=== PATIENT | male | born 1975 | race Caucasian/White ===

== ENCOUNTER 2020-04-14 07:55 | Outpatient (CLI) | payer OTHER, SELFPAY ==
[2020-04-14 08:23] LABS: Basophils Absolute Auto 0.1 K/mm3 (0.0-0.1); Basophils Percent Auto 0.7 % (0.2-1.2); Eosinophils Absolute Auto 0.1 K/mm3 (0-0.3); Eosinophils Percent Auto 0.7 % (0-4.4); Hematocrit 46.5 % (42.0-52.0); Hemoglobin 15.3 g/dL (14.0-18.0); Immature Granulocyte Absolute 0.02 K/mm3 (0.00-0.031); Immature Granulocyte Percent A 0.3 % (0-0.5); Lymphocytes Absolute Auto 2.25 K/mm3 (0.9-3.2); Lymphocytes Percent Auto 32.5 % (18.3-44.2); Mean Corpuscular HGB Conc 32.9 g/dl (32-36); Mean Corpuscular Hemoglobin 29.1 pg (26-34); Mean Corpuscular Volume 88.6 fl (80-100); Mean Platelet Volume 10.5 fl (7.4-10.4); Monocytes Absolute Auto 0.7 K/mm3 (0.1-0.6); Monocytes Percent Auto 10.5 % (2.6-8.5); Neutrophils Absolute Auto 3.8 K/mm3 (1.3-6.7); Neutrophils Percent Auto 55.3 % (45.5-73.1); Platelet Count Result 243 k/mm3 (150-375); Red Blood Count 5.25 M/mm3 (4.6-6.20); Red Cell Distribution Width 13.9 % (11.5-14.5); White Blood Count 6.9 K/mm3 (4.5-10.0)
[2020-04-14 08:35] LABS: Alanine Aminotransferase 96 U/L (4-50); Albumin Level 4.2 g/dL (3.5-5.1); Alkaline Phosphatase 119 U/L (38-126); Anion Gap 4 mmol/L (8-16); Aspartate Amino Transferase 51 U/L (17-59); Bilirubin,Total 0.6 mg/dL (0.2-1.3); Blood Urea Nitrogen 10 mg/dL (9-20); Calcium 10.2 mg/dL (8.4-10.2); Carbon Dioxide 27 mmol/L (22-30); Chloride 110 mmol/L (98-107); Cholesterol 157 mg/dL (0-200); Estimated Glomerular Filt Rate > 60; Glucose 105 mg/dL (75-110); HDL Direct 31 mg/dL; Potassium 4.1 mmol/L (3.4-5.0); Sodium 141 mmol/L (137-145); Triglycerides 138 mg/dL (<150); Uric Acid 8.1 mg/dL (3.5-8.5)
[2020-04-14 08:46] LABS: LDL Cholesterol Direct 95 mg/dL
[2020-04-14 10:35] LABS: Hemoglobin A1C 5.7 % (<5.7)
== END 2020-04-14 07:56 | disposition home or self-care (01) ==
PROVIDERS: PCP Family Medicine; Visit Provider Family Medicine
DX: I10 Essential (primary) hypertension (principal); R63.5 Abnormal weight gain; Z13.1 Encounter for screening for diabetes mellitus; N20.0 Calculus of kidney; E78.2 Mixed hyperlipidemia
CPT/HCPCS: 36415; 80053; 80061; 83036; 84550; 85025

== ENCOUNTER 2020-05-30 12:40 | Outpatient (CLI) | payer OTHER, SELFPAY ==
[2020-05-30 13:38] LABS: Alanine Aminotransferase 80 U/L (4-50); Aspartate Amino Transferase 48 U/L (17-59)
== END 2020-05-30 12:41 | disposition home or self-care (01) ==
PROVIDERS: PCP Family Medicine; Visit Provider Family Medicine
DX: Z79.899 Other long term (current) drug therapy (principal)
CPT/HCPCS: 36415; 84450; 84460

== ENCOUNTER 2020-08-16 13:31 | Outpatient (CLI) | payer OTHER, SELFPAY ==
[2020-08-16 14:15] LABS: Alanine Aminotransferase 81 U/L (4-50); Alkaline Phosphatase 118 U/L (38-126); Aspartate Amino Transferase 58 U/L (17-59)
== END 2020-08-16 13:32 | disposition home or self-care (01) ==
PROVIDERS: PCP Family Medicine; Visit Provider Family Medicine
DX: R79.89 Other specified abnormal findings of blood chemistry (principal); Z79.899 Other long term (current) drug therapy
CPT/HCPCS: 36415; 84075; 84450; 84460

== ENCOUNTER → 2020-08-25 13:06 | Outpatient (CLI) | payer OTHER, SELFPAY ==
--- NOTE | ~2020-08-25 | US_ITS ---
EXAMINATION: US abdomen limited EXAM DATE: 08/25/2020 13:34 INDICATION: Abnormal levels of other serum enzymes. TECHNIQUE: Multiple grayscale and Doppler images of the abdomen right upper quadrant were obtained (b y a technologist who performed the scan) and subsequently reviewed. There is no prior study for ayleen chavez. FINDINGS: The pancreatic head and body are normal in appearance. The pancreatic tail is not visualized. There is echogenic liver parenchyma with poor penetration, hepatic steatosis. There are no focal liver le sions identified. There is no evidence of intrahepatic biliary duct dilation. Portal venous flow w as seen in the hepatopedal, normal direction and has normal Doppler waveform. No right-sided hydrone phrosis. Common bile duct measures 4 mm, which is normal. The gallbladder wall is normal in thickness, with ex pected amount of distention. No sonographic evidence of pericholecystic fluid. There is no cholelit hiases. Technologist performing exam reports patient did not demonstrate sonographic Deleon's sign. Please note that this sign is less reliable in patients who have received pain medication. IMPRESSION: 1. Hepatic steatosis. Reviewed, dictated and finalized at location B. IMPRESSION: 1. Hepatic steatosis.
== END ==
PROVIDERS: PCP Family Medicine; Visit Provider Family Medicine
DX: R74.8 Abnormal levels of other serum enzymes (principal); K76.0 Fatty (change of) liver, not elsewhere classified
CPT/HCPCS: 76705

== ENCOUNTER 2020-10-06 14:23 | Outpatient (CLI) | payer OTHER, SELFPAY ==
[2020-10-06 16:11] LABS: Anion Gap 7 mmol/L (8-16); Blood Urea Nitrogen 13 mg/dL (9-20); Calcium 9.9 mg/dL (8.4-10.2); Carbon Dioxide 25 mmol/L (22-30); Chloride 106 mmol/L (98-107); Estimated Glomerular Filt Rate > 60; Glucose 131 mg/dL (65-110); Sodium 138 mmol/L (137-145)
== END 2020-10-06 14:24 | disposition home or self-care (01) ==
LOC: ANHLAB 14:26
PROVIDERS: PCP Family Medicine; Visit Provider Anesthesiology
DX: Z01.818 Encounter for other preprocedural examination (principal); Z79.899 Other long term (current) drug therapy
CPT/HCPCS: 36415; 80048

== ENCOUNTER 2020-10-11 01:39 | Day surgery (SDC) | payer OTHER, SELFPAY ==
[2020-10-05 18:11] VITALS: BMI 45.2
--- NOTE | 2020-10-10 13:49 | WPDANESEPPF ---
Anes - Initial Pre Proc Eval Procedure: Operation Date: 10/11/20 09:45 Proposed Procedures p Excision of Lipoma Subcutaneous Mass Right Posterior Neck - Jet Rascon MD s Excision Tender Pigmented Neoplasm Right Posterior Thigh - Jet Rascon MD Date/Time: 10/10/20 13:49 Surgeon: Jet Rascon MD Pre Op Diagnosis: Sub Q Mass Right Posterior Neck, Patient Data Age: 45 Gender: M Height: 1.78 m Weight: 143.1 kg Allergies Allergy/AdvReac Type Severity Reaction Status Date / Time bupropion AdvReac Severe Swelling/It Verified 10/11/20 07:41 lucía Home Medications Medication Instructions Recorded Confirmed Type lisinopril 20 1 tablet PO DAILY #90 tablet 04/13/20 10/11/20 Rx mg-hydrochlorothiazide 12.5 mg tablet atorvastatin 20 mg PO EVERY OTHER DAY 10/05/20 10/11/20 History hydrocodone-acetaminophen 1 tablet PO Q6H PRN #8 tablet MDD 6 10/11/20 Rx Patient hx anesthesia problems: none Family hx anesthesia problems: none PMFSH Past Medical History Medical History (Updated 08/26/20 @ 14:41 by Mariola Torres MD) Elevated liver enzymes H/O: HTN (hypertension) HLD (hyperlipidemia) Kidney stones Neck mass KUSUM on CPAP Surgical History Surgical History H/O lithotripsy History of wisdom tooth extraction Family History Family History Father Depression Other Colon cancer History of eye cancer Social History Social History (Updated 08/17/20 @ 09:55 by Sivan Arellano) Social History: Smoking status: Never smoker Second hand tobacco smoke exposure: No Alcohol intake: never Substance use: never Substance use type: does not use Living arrangements: with family Gender identity (if verbalized by the patient): Male Spiritual care concerns: No Anes - Eval Final PreProcedure Day of Procedure 10/10/20 13:49 Patient weight: morbidly obese Heart: regular rate and rhythm Lungs: clear to auscultation and normal air movement Airway: Mallampati scale class II Neurological: alert and oriented Last oral intake: >/= 8 hours ASA classification: III Emergent: no Anesthetic plan: proceed Anesthesia type and monitoring: general GIVS and standard monitoring Informed Consent: The patient's anesthetic plan and its attendant risks and benefits were discussed with the patient/family/POA. Questions were solicited and answers provided to the satisfaction of the patient/family/POA.
--- NOTE | 2020-10-11 07:16 | WPDHPUPDATE1 ---
History and Physical Update Update Date/Time: 10/11/20 07:16 History and Physical has been reviewed, including an updated exam of the patient. There are NO changes in the patient's condition. Risks, benefits, and alternatives have been discussed and questions answered. Patient agrees to proceed with procedure.
[2020-10-11 08:10] VITALS: BP 123/66; PULSE 69; RESP 20; TEMP 36.7; O2SAT 96
[2020-10-11] MEDS: LACTATED RINGERS 1,000 ML 30 ML IV CONT (08:45)
--- NOTE | 2020-10-11 09:19 | W.PM.PROC2 ---
Procedure Note - Detailed Date of Procedure 10/11/20 Pre-op Diagnosis Subcutaneous mass right posterior neck. Subcutaneous mass of the right posterior thigh Post-op Diagnosis other (15 cm lipoma of the right posterior neck. 2 cm pigmented subcutaneous mass of the right lateral thigh) Procedure Performed Excision of 15 cm lipoma of the right posterior neck with intermediate repair 11 cm. 3 cm excision of subcutaneous mass of the right posterior thigh with intermediate repair 3 cm Surgeon Jet Rascon MD Rotary Drier Operator Jerman costello Anesthesia MAC Findings Lipoma of right posterior neck Description of Procedure The 2 sites were marked on the patient's thigh and neck in the holding area. He was taken to the operating room and placed on his left side on the operating table. Pressure points were padded. He was given IV sedation. The right upper back and right posterior neck and right lateral thigh were prepped and draped in the usual fashion. Each of the sites was infiltrated with 1% lidocaine with epinephrine. The lesion from from the right lateral thigh was taken 1st as a 2.5 cm ellipse deep in the subcutaneous tissue and sent to pathology the intention was to clear all of the pigmented tissue from this. The wound was closed with intradermal 3-0 Vicryl suture and a running 5 0 nylon. The mass from the lateral back was incised following the relaxed skin lines. Dissection was carried sharply through the subcutaneous tissue with a 15 blade. Bleeding points were electrocoagulated. The capsule of the large lipoma was identified and was dissected around its periphery with sharp and blunt dissection and digital dissection. The fatty mass was removed and is being sent to pathology. It was measured at 15 cm in length. No residual lipoma was visible. The bleeding points were electrocoagulated. The cavity was addressed with placement of a 3 x 8 in Gelfoam broken into pieces. One side of the skin incision was reduced with a 15 blade throughout its length to improve draping and contour. The wound was approximated with deep intradermal 3-0 Vicryl sutures and the skin was closed with a running 5 0 nylon. A Xeroform and Tegaderm and gauze dressing was applied to each site. He was discharged from the operating room in stable condition. He will be discharged home with instructions in wound care and follow-up and a prescription for hydrocodone 5/325 8. Estimated Blood Loss 15 Drains No Packing Yes (Gelfoam) Pathology yes Complications No immediate complications Condition stable Disposition same day
[2020-10-11] MEDS: KETOROLAC 15 MG/ML VIAL (*BKC) IV PUSH (09:45)
[2020-10-11] MEDS: LIDO 1%/EPINEPHRINE/PF 1:200,000 30 ML VIAL 20 ML XX (09:52)
[2020-10-11] MEDS: BACITRACIN/POLYMYXIN B OINT 15 GM TUBE 1 APPLIC TOPICAL (10:46)
[2020-10-11 10:52] VITALS: BP 128/67; PULSE 77; RESP 16; O2SAT 94
--- NOTE | 2020-10-11 11:01 | PM.OP ---
Procedure Note - Brief Procedure Note - Brief Date of procedure: 10/11/20 Pre-op diagnosis: Sub Q Mass Right Posterior Neck, Subcutaneous mass right posterior neck. Subcutaneous mass right lateral thigh Post-op diagnosis: other (15 cm subcutaneous lipoma of the right posterior neck. 2 cm subcutaneous mass of the right lateral thigh) Procedure performed: Excision of 15 cm lipoma of the right posterior neck with intermediate repair 11 cm. 2 cm excision of pigmented subcutaneous mass of the right lateral thigh with intermediate repair 3 cm Anesthesia: MAC Surgeon: Jet Rascon MD Professor Of Business Administration: Jerman costello Estimated blood loss (mL): 15 Drains: No Packing: Yes (Gelfoam) Pathology: yes Complications: No immediate complications Condition: stable Disposition: same day
[2020-10-11 11:20] VITALS: BP 117/65; PULSE 78; RESP 16; O2SAT 96
[2020-10-11 11:50] VITALS: BP 133/66; PULSE 60; RESP 16
== END 2020-10-11 12:14 | disposition home or self-care (01) ==
PROVIDERS: PCP Family Medicine; Visit Provider Plastic Surgery
PROC: (CPT 21552; principal; 2020-10-11 09:45)
PROC: (CPT 21552; 2020-10-11 09:45)
DX: D17.0 Benign lipomatous neoplasm of skin and subcutaneous tissue of head, face and neck (principal); D23.71 Other benign neoplasm of skin of right lower limb, including hip; I10 Essential (primary) hypertension; E78.5 Hyperlipidemia, unspecified; G47.33 Obstructive sleep apnea (adult) (pediatric); E66.01 Morbid (severe) obesity due to excess calories; Z68.42 Body mass index [BMI] 45.0-49.9, adult; Z79.899 Other long term (current) drug therapy
CPT/HCPCS: 21552; 11403; 12032; 88304; 88305; A9270; J0131; J1100; J1170; J1885; J2250; J2405; J2704; J3010; J7120

== ENCOUNTER 2021-05-03 08:12 | Outpatient (CLI) | payer OTHER, SELFPAY ==
[2021-05-03 08:50] LABS: Basophils Absolute Auto 0.1 K/mm3 (0.0-0.1); Basophils Percent Auto 0.9 % (0.2-1.2); Eosinophils Percent Auto 0.5 % (0-4.4); Hematocrit 46.9 % (42.0-52.0); Hemoglobin 15.5 g/dL (14.0-18.0); Immature Granulocyte Absolute 0.04 K/mm3 (0.00-0.031); Immature Granulocyte Percent A 0.5 % (0-0.5); Lymphocytes Absolute Auto 2.68 K/mm3 (0.9-3.2); Lymphocytes Percent Auto 33.6 % (18.3-44.2); Mean Corpuscular Hemoglobin 29.5 pg (26-34); Mean Corpuscular Volume 89.2 fl (80-100); Mean Platelet Volume 10.1 fl (7.4-10.4); Monocytes Absolute Auto 0.7 K/mm3 (0.1-0.6); Monocytes Percent Auto 8.5 % (2.6-8.5); Neutrophils Absolute Auto 4.5 K/mm3 (1.3-6.7); Platelet Count Result 249 k/mm3 (150-375); Red Blood Count 5.26 M/mm3 (4.6-6.20); Red Cell Distribution Width 14.2 % (11.5-14.5)
[2021-05-03 09:01] LABS: Alanine Aminotransferase 103 U/L (4-50); Albumin Level 4.3 g/dL (3.5-5.1); Alkaline Phosphatase 126 U/L (38-126); Anion Gap 7 mmol/L (8-16); Aspartate Amino Transferase 63 U/L (17-59); Bilirubin,Total 0.5 mg/dL (0.2-1.3); Blood Urea Nitrogen 15 mg/dL (9-20); Carbon Dioxide 25 mmol/L (22-30); Chloride 108 mmol/L (98-107); Cholesterol 187 mg/dL (0-200); Estimated Glomerular Filt Rate > 60; Glucose 106 mg/dL (65-110); HDL Direct 30 mg/dL; Potassium 3.8 mmol/L (3.4-5.0); Sodium 140 mmol/L (137-145); Triglycerides 191 mg/dL (<150)
[2021-05-03 09:03] LABS: Hemoglobin A1C 5.6 % (<5.7)
[2021-05-03 09:12] LABS: LDL Cholesterol Direct 110 mg/dL
== END 2021-05-03 08:13 | disposition home or self-care (01) ==
PROVIDERS: PCP Family Medicine; Visit Provider Nurse Practitioner Gerontology
DX: R74.8 Abnormal levels of other serum enzymes (principal); Z51.81 Encounter for therapeutic drug level monitoring; Z79.899 Other long term (current) drug therapy; E78.5 Hyperlipidemia, unspecified; I10 Essential (primary) hypertension; R63.5 Abnormal weight gain; Z13.1 Encounter for screening for diabetes mellitus
CPT/HCPCS: 36415; 80053; 80061; 83036; 84443; 85025

== ENCOUNTER 2021-11-21 07:47 | Outpatient (CLI) | payer OTHER, SELFPAY ==
[2021-11-21 08:16] LABS: Alanine Aminotransferase 62 U/L (6-50); Albumin Level 4.6 g/dL (3.5-5.1); Alkaline Phosphatase 126 U/L (38-126); Anion Gap 8 mmol/L (8-16); Aspartate Amino Transferase 47 U/L (17-59); Bilirubin,Total 0.7 mg/dL (0.2-1.3); Blood Urea Nitrogen 14 mg/dL (9-20); Calcium 10.4 mg/dL (8.4-10.2); Carbon Dioxide 22 mmol/L (22-30); Chloride 109 mmol/L (98-107); Cholesterol 182 mg/dL (0-200); Estimated Glomerular Filt Rate > 60; Glucose 105 mg/dL (65-110); HDL Direct 33 mg/dL; Potassium 4.1 mmol/L (3.4-5.0); Sodium 139 mmol/L (137-145); Triglycerides 156 mg/dL (<150)
[2021-11-21 08:28] LABS: LDL Cholesterol Direct 107 mg/dL
== END 2021-11-21 07:48 | disposition home or self-care (01) ==
LOC: ANHLAB 07:49
PROVIDERS: PCP Family Medicine; Visit Provider Nurse Practitioner Gerontology
DX: R74.8 Abnormal levels of other serum enzymes (principal); E78.5 Hyperlipidemia, unspecified; Z79.899 Other long term (current) drug therapy
CPT/HCPCS: 36415; 80053; 80061

== ENCOUNTER 2022-01-22 08:39 | Outpatient (CLI) | payer OTHER, SELFPAY ==
[2022-01-22 09:29] LABS: Alanine Aminotransferase 66 U/L (6-50); Albumin Level 4.4 g/dL (3.5-5.1); Alkaline Phosphatase 125 U/L (38-126); Anion Gap 6 mmol/L (8-16); Aspartate Amino Transferase 44 U/L (17-59); Bilirubin,Total 0.3 mg/dL (0.2-1.3); Blood Urea Nitrogen 13 mg/dL (9-20); Carbon Dioxide 24 mmol/L (22-30); Chloride 106 mmol/L (98-107); Estimated Glomerular Filt Rate > 60; Glucose 103 mg/dL (65-110); Potassium 4.3 mmol/L (3.4-5.0); Sodium 136 mmol/L (137-145)
== END 2022-01-22 08:40 | disposition home or self-care (01) ==
LOC: ANHLAB 08:40
PROVIDERS: PCP Family Medicine; Visit Provider Physician Assistant
DX: E83.52 Hypercalcemia (principal)
CPT/HCPCS: 36415; 80053

== ENCOUNTER 2022-08-06 07:54 | Outpatient (CLI) | payer OTHER, SELFPAY ==
[2022-08-06 08:09] LABS: Basophils Absolute Auto 0.1 K/mm3 (0.0-0.1); Basophils Percent Auto 0.8 % (0.2-1.2); Eosinophils Percent Auto 0.1 % (0-4.4); Hematocrit 46.8 % (42.0-52.0); Hemoglobin 15.6 g/dL (14.0-18.0); Immature Granulocyte Absolute 0.05 K/mm3 (0.00-0.031); Immature Granulocyte Percent A 0.6 % (0-0.5); Lymphocytes Absolute Auto 2.52 K/mm3 (0.9-3.2); Lymphocytes Percent Auto 32.7 % (18.3-44.2); Mean Corpuscular HGB Conc 33.3 g/dl (32-36); Mean Corpuscular Hemoglobin 29.3 pg (26-34); Mean Corpuscular Volume 87.8 fl (80-100); Mean Platelet Volume 10.2 fl (7.4-10.4); Monocytes Absolute Auto 0.7 K/mm3 (0.1-0.6); Monocytes Percent Auto 9.6 % (2.6-8.5); Neutrophils Absolute Auto 4.3 K/mm3 (1.3-6.7); Neutrophils Percent Auto 56.2 % (45.5-73.1); Platelet Count Result 247 k/mm3 (150-375); Red Blood Count 5.33 M/mm3 (4.6-6.20); Red Cell Distribution Width 14.2 % (11.5-14.5); White Blood Count 7.7 K/mm3 (4.5-10.0)
[2022-08-06 08:21] LABS: Alanine Aminotransferase 61 U/L (6-50); Albumin Level 4.2 g/dL (3.5-5.1); Alkaline Phosphatase 134 U/L (38-126); Anion Gap 6 mmol/L (8-16); Aspartate Amino Transferase 40 U/L (17-59); Bilirubin,Total 0.4 mg/dL (0.2-1.3); Blood Urea Nitrogen 14 mg/dL (9-20); Calcium 10.3 mg/dL (8.4-10.2); Carbon Dioxide 27 mmol/L (22-30); Chloride 107 mmol/L (98-107); Cholesterol 189 mg/dL (0-200); Estimated Glomerular Filt Rate > 60; Glucose 105 mg/dL (65-110); HDL Direct 37 mg/dL; Potassium 4.1 mmol/L (3.4-5.0); Sodium 140 mmol/L (137-145); Triglycerides 190 mg/dL (<150)
[2022-08-06 08:31] LABS: LDL Cholesterol Direct 111 mg/dL
== END 2022-08-06 07:55 | disposition home or self-care (01) ==
LOC: ANHLAB 07:55
PROVIDERS: PCP Family Medicine; Visit Provider Physician Assistant
DX: R74.8 Abnormal levels of other serum enzymes (principal); I10 Essential (primary) hypertension; E78.5 Hyperlipidemia, unspecified
CPT/HCPCS: 36415; 80053; 80061; 85025

== ENCOUNTER 2024-02-06 07:48 | Outpatient (CLI) | payer OTHER, SELFPAY ==
[2024-02-06 08:18] LABS: Basophils Percent Auto 0.6 % (0.2-1.2); Eosinophils Absolute Auto 0.3 K/mm3 (0-0.3); Eosinophils Percent Auto 4.9 % (0-4.4); Hematocrit 46.6 % (42.0-52.0); Hemoglobin 15.5 g/dL (14.0-18.0); Immature Granulocyte Absolute 0.03 K/mm3 (0.00-0.031); Immature Granulocyte Percent A 0.4 % (0-0.5); Lymphocytes Absolute Auto 2.23 K/mm3 (0.9-3.2); Lymphocytes Percent Auto 32.2 % (18.3-44.2); Mean Corpuscular HGB Conc 33.3 g/dl (32-36); Mean Corpuscular Hemoglobin 29.2 pg (26-34); Mean Corpuscular Volume 87.9 fl (80-100); Mean Platelet Volume 10.2 fl (7.4-10.4); Monocytes Absolute Auto 0.7 K/mm3 (0.1-0.6); Neutrophils Absolute Auto 3.6 K/mm3 (1.3-6.7); Neutrophils Percent Auto 51.9 % (45.5-73.1); Platelet Count Result 227 k/mm3 (150-375); Red Cell Distribution Width 13.8 % (11.5-14.5); White Blood Count 6.9 K/mm3 (4.5-10.0)
[2024-02-06 08:30] LABS: Alanine Aminotransferase 40 U/L (6-50); Albumin Level 4.5 g/dL (3.5-5.1); Alkaline Phosphatase 113 U/L (38-126); Anion Gap 6 mmol/L (4-12); Aspartate Amino Transferase 41 U/L (17-59); Bilirubin,Total 0.9 mg/dL (0.2-1.3); Blood Urea Nitrogen 16 mg/dL (9-20); Calcium 10.7 mg/dL (8.4-10.2); Carbon Dioxide 28 mmol/L (22-30); Chloride 104 mmol/L (98-107); Cholesterol 186 mg/dL (0-200); Estimated Glomerular Filt Rate > 60; Glucose 98 mg/dL (65-110); HDL Direct 35 mg/dL; Potassium 3.9 mmol/L (3.4-5.0); Sodium 138 mmol/L (137-145); Triglycerides 156 mg/dL (<150)
[2024-02-06 08:40] LABS: LDL Cholesterol Direct 102 mg/dL
== END 2024-02-06 07:49 | disposition home or self-care (01) ==
LOC: ANHLAB 07:49
PROVIDERS: PCP Family Medicine; Visit Provider Student in an Organized Health Care Education/Training Program
DX: E78.5 Hyperlipidemia, unspecified (principal); I10 Essential (primary) hypertension
CPT/HCPCS: 36415; 80053; 80061; 85025

== ENCOUNTER 2024-06-03 00:22 | Day surgery (SDC) | payer OTHER, SELFPAY ==
[2024-05-25 15:49] VITALS: BMI 43.6
--- OUTSIDE RECORDS SUMMARY | 2024-06-03 00:25 | XMS_ITS | CONTINUITY OF CARE DOCUMENT ---
Author Name evy ratliff Address Unknown Organization [facility] Address [address] [address] [place] [address] Phone [phone] Care Team Providers Care Torpedoman'S Mate Name Role Phone Glenn BRO, Delio Unavailable PETE NOLASCO MD Unavailable INSURANCE PROVIDERS Payer name Policy type / Coverage type [place] [employer] party ID [employer] Other [id number]
--- OUTSIDE RECORDS SUMMARY | 2024-06-03 00:25 | XMS_ITS | Continuity of Care Document ---
Author Name [facility] Organization [facility] Care Team Providers Care Plc Engineer Name Role Phone [facility] Unavailable Unavailable Allergies, Adverse Reactions, Alerts Combined list of allergies from Department of Defense and Veterans Affairs facilities. It does not include entries that were removed or entered in error. Substance Category Reaction Severity Reaction type Status Date Reported Comments Source buPROPion Propensity to adverse reactions to drug Unknown Active 6 edema, itching - 24 may 2005 - [facility] Unknown Organization Immunizations Combined list of available immunizations from the Department of Defense and Veterans Affairs facilities. Immunization Series Date Given Administered By Site Reaction Lot Number CVX Code Drug Space Engineer Status Comments Source COVID Vaccine Moderna 2020 207 complet ed COVID Vaccine Moderna 05/15/20 Given Ambulat ory Pharmac y COVID Vaccine Moderna 2020 207 complet ed COVID Vaccine Moderna 04/15/20 Given Ambulat ory Pharmac y tuberculin purified protein derivative 2012 zzLef t Arm [id number] 96 sanofi pasteur complet ed Patient Tolerance : Negative Ambulat ory Pharmac y tuberculin purified protein derivative 2012 [id number] 96 sanofi pasteur complet ed tuberculi n purified protein derivativ e 02/19/12 Given Ambulat ory Pharmac y influenza, seasonal, injectable 2010 [id number] 1A 141 [employer] complet ed influenza , seasonal, injectabl e 11/09/10 Given Ambulat ory Pharmac y influenza, seasonal, injectable 2010 [id number] 1A 141 [employer] complet ed influenza , seasonal, injectabl e 11/09/10 Given Ambulat ory Pharmac y anthrax vaccine 2010 [id number] [employer] complet ed anthrax vaccine 03/28/10 Given Ambulat ory Pharmac y anthrax vaccine 2010 [id number] [employer] complet ed anthrax vaccine 03/28/10 Given Ambulat ory Pharmac y influenza virus vaccine,split 2009 [id number] 15 sanofi pasteur complet ed influenza virus vaccine,s plit 01/17/10 Given Ambulat ory Pharmac y influenza virus vaccine,split 2009 [id number] 15 sanofi pasteur complet ed influenza virus vaccine,s plit 01/17/10 Given Ambulat ory Pharmac y typhoid Vi capsular polysaccharid e vac 2009 [id number] sanofi pasteur complet ed typhoid Vi capsular polysacch aride vac 03/16/09 Given Ambulat ory Pharmac y typhoid Vi capsular polysaccharid e vac 2009 [id number] 101 sanofi pasteur complet ed typhoid Vi capsular polysacch aride vac 03/16/09 Given Ambulat ory Pharmac y Novel influenza-H1N 1-09,pf,injec table 2008 [id number] 1A 126 [employer] ls complet ed Novel influenza -[id number], pf,inject able 12/23/08 Given Ambulat ory Pharmac y anthrax vaccine 2008 [id number] 24 [employer] complet ed anthrax vaccine 12/23/08 Given Ambulat ory Pharmac y anthrax vaccine 2008 [id number] 24 [employer] complet ed anthrax vaccine 12/23/08 Given Ambulat ory Pharmac y Novel influenza-H1N 1-09,pf,injec table 2008 [id number] 1A 126 [employer] ls complet ed Novel influenza -[id number], pf,inject able 12/23/08 Given Ambulat ory Pharmac y influenza virus vaccine, live 2008 [id number] 111 Med[employer] Inc comple t ed influenza virus vaccine, live 10/20/08 Given Ambulat ory Pharmac y influenza virus vaccine, live 2008 [id number] 111 [employer] comple t ed influenza virus vaccine, live 10/20/08 Given Ambulat ory Pharmac y influenza virus vaccine,split 2007 [id number] 15 sanofi pasteur complet ed influenza virus vaccine,s plit 02/08/08 Given Ambulat ory Pharmac y influenza virus vaccine,split 2007 [id number] 15 sanofi pasteur complet ed influenza virus vaccine,s plit 02/08/08 Given Ambulat ory Pharmac y anthrax vaccine 2007 [id number] 24 [employer] complet ed anthrax vaccine 10/13/07 Given Ambulat ory Pharmac y hepatitis B adult vaccine 2007 [id number] 43 [employer] Inc complet ed hepatitis B adult vaccine 10/13/07 Given Ambulat ory Pharmac y hepatitis B adult vaccine 2007 [id number] 43 [employer] complet ed hepatitis B adult vaccine 10/13/07 Given Ambulat ory Pharmac y hepatitis B adult vaccine 2007 [id number] 43 [employer] complet ed hepatitis B adult vaccine 03/05/07 Given Ambulat ory Pharmac y hepatitis B adult vaccine 2007 [id number] 43 [employer] complet ed hepatitis B adult vaccine 03/05/07 Given Ambulat ory Pharmac y hepatitis B adult vaccine 2006 [id number] 43 [employer] complet ed hepatitis B adult vaccine 01/29/07 Given Ambulat ory Pharmac y typhoid Vi capsular polysaccharid e vac 2006 101 sanofi pasteur complet ed typhoid Vi capsular polysacch aride vac 01/29/07 Given Ambulat ory Pharmac y typhoid Vi capsular polysaccharid e vac 2006 101 sanofi pasteur complet ed typhoid Vi capsular polysacch aride vac 01/29/07 Given Ambulat ory Pharmac y influenza virus vaccine, live 2006 [id number] 111 [employer] comple t ed influenza virus vaccine, live 01/06/07 Given Ambulat ory Pharmac y influenza virus vaccine, live 2006 [id number] 111 [employer] comple t ed influenza virus vaccine, live 01/06/07 Given Ambulat ory Pharmac y tetanus, diphtheria, acellular pertu is 2006 [id number] 115 sanofi pasteur complet ed tetanus, diphtheri a, acellular pertussis 10/08/06 Given Ambulat ory Pharmac y tetanus, diphtheria, acellular pertu is 2006 [id number] 115 sanofi pasteur complet ed tetanus, diphtheri a, acellular pertussis 10/08/06 Given Ambulat ory Pharmac y anthrax vaccine 2006 [id number] [employer] complet ed anthrax vaccine 06/06/06 Given Ambulat ory Pharmac y anthrax vaccine 2006 [id number] 24 [employer] complet ed anthrax vaccine 06/06/06 Given Ambulat ory Pharmac y influenza virus vaccine, whole virus 2006 zzLef t Arm [id number] 16 sanofi pasteur complet ed influenza virus vaccine, whole virus 02/25/06 Given Ambulat ory Pharmac y influenza virus vaccine,split 2006 [id number] 15 sanofi pasteur complet ed influenza virus vaccine,s plit 02/25/06 Given Ambulat ory Pharmac y influenza virus vaccine, whole virus 2006 [id number] 16 sanofi pasteur complet ed influenza virus vaccine, whole virus 02/25/06 Given Ambulat ory Pharmac y influenza virus vaccine,split 2006 [id number] 15 sanofi pasteur complet ed influenza virus vaccine,s plit 02/25/06 Given Ambulat ory Pharmac y anthrax vaccine 2005 [id number] 24 [employer] complet ed anthrax vaccine 05/14/05 Given Ambulat ory Pharmac y anthrax vaccine 2005 [id number] [employer] complet ed anthrax vaccine 05/14/05 Given Ambulat ory Pharmac y influenza virus vaccine, live 2004 [id number] 111 [employer] comple t ed influenza virus vaccine, live 01/03/05 Given Ambulat ory Pharmac y influenza virus vaccine, live 2004 [id number] 111 [employer] comple t ed influenza virus vaccine, live 01/03/05 Given Ambulat ory Pharmac y typhoid vaccine, parenteral 2004 [id number] 41 sanofi pasteur complet ed typhoid vaccine, parentera l 03/07/04 Given Ambulat ory Pharmac y typhoid vaccine, parenteral 2004 [id number] 41 sanofi pasteur complet ed typhoid vaccine, parentera l 03/07/04 Given Ambulat ory Pharmac y influenza virus vaccine, whole virus 2004 [id number] 16 sanofi pasteur complet ed influenza virus vaccine, whole virus 02/22/04 Given Ambulat ory Pharmac y influenza virus vaccine, whole virus 2004 [id number] 16 sanofi pasteur complet ed influenza virus vaccine, whole virus 02/22/04 Given Ambulat ory Pharmac y vaccinia (smallpox) vaccine 2003 [id number] 75 [facility] complet ed vaccinia (smallpox ) vaccine 01/16/04 Given Ambulat ory Pharmac y vaccinia (smallpox) vaccine 2003 [id number] 75 [facility] complet ed vaccinia (smallpox ) vaccine 01/16/04 Given Ambulat ory Pharmac y anthrax vaccine 2003 [id number] [employer] complet ed anthrax vaccine 06/04/03 Given Ambulat ory Pharmac y anthrax vaccine 2003 [id number] 24 [employer] complet ed anthrax vaccine 06/04/03 Given Ambulat ory Pharmac y influenza virus vaccine, whole virus 2002 [id number] 16 sanofi pasteur complet ed influenza virus vaccine, whole virus 12/07/02 Given Ambulat ory Pharmac y influenza virus vaccine, whole virus 2002 [id number] 16 sanofi pasteur complet ed influenza virus vaccine, whole virus 12/07/02 Given Ambulat ory Pharmac y typhoid vaccine, parenteral 2002 [id number] 41 sanofi pasteur complet ed typhoid vaccine, parentera l 04/01/02 Given Ambulat ory Pharmac y influenza virus vaccine, whole virus 2001 [id number] 16 sanofi pasteur complet ed influenza virus vaccine, whole virus 12/24/01 Given Ambulat ory Pharmac y influenza virus vaccine, whole virus 2001 [id number] 16 sanofi pasteur complet ed influenza virus vaccine, whole virus 12/24/01 Given Ambulat ory Pharmac y meningococcal polysaccharid e (MPSV4) 2001 [id number] 32 sanofi pasteur complet ed meningoco ccal polysacch aride (MPSV4) 07/16/01 Given Ambulat ory Pharmac y tuberculin purified protein derivative 2001 zzLef t Arm [id number] 96 sanofi pasteur complet ed Patient Tolerance : Negative Ambulat ory Pharmac y tuberculin purified protein derivative 2001 [id number] 96 sanofi pasteur complet ed tuberculi n purified protein derivativ e 04/29/01 Given Ambulat ory Pharmac y influenza virus vaccine, whole virus 2000 [id number] 16 sanofi pasteur complet ed influenza virus vaccine, whole virus 12/26/00 Given Ambulat ory Pharmac y influenza virus vaccine, whole virus 1999 16 complet ed influenza virus vaccine, whole virus 01/29/00 Given Ambulat ory Pharmac y influenza virus vaccine, whole virus 1999 16 complet ed influenza virus vaccine, whole virus 01/29/00 Given Ambulat ory Pharmac y tuberculin purified protein derivative 1999 96 complet ed Patient Tolerance : Negative Ambulat ory Pharmac y tuberculin purified protein derivative 1999 96 complet ed tuberculi n purified protein derivativ e 01/15/00 Given Ambulat ory Pharmac y anthrax vaccine 1999 24 [employer] complet ed anthrax vaccine 05/07/99 Given Ambulat ory Pharmac y influenza virus vaccine, whole virus 1998 [id number] 16 sanofi pasteur complet ed influenza virus vaccine, whole virus 12/01/98 Given Ambulat ory Pharmac y anthrax vaccine 1998 [id number] [employer] complet ed anthrax vaccine 12/01/98 Given Ambulat ory Pharmac y influenza virus vaccine, whole virus 1998 [id number] 16 sanofi pasteur complet ed influenza virus vaccine, whole virus 12/01/98 Given Ambulat ory Pharmac y anthrax vaccine 1998 [id number] [employer] complet ed anthrax vaccine 12/01/98 Given Ambulat ory Pharmac y anthrax vaccine 1998 [id number] 24 [employer] complet ed anthrax vaccine 11/10/98 Given Ambulat ory Pharmac y anthrax vaccine 1998 [id number] 24 [employer] complet ed anthrax vaccine 11/10/98 Given Ambulat ory Pharmac y anthrax vaccine 1998 [id number] 24 [employer] complet ed anthrax vaccine 10/27/98 Given Ambulat ory Pharmac y anthrax vaccine 1998 [id number] 24 [employer] complet ed anthrax vaccine 10/27/98 Given Ambulat ory Pharmac y tuberculin purified protein derivative 1998 96 complet ed Patient Tolerance : Negative Ambulat ory Pharmac y influenza virus vaccine, whole virus [id number] 16 [facility] complet ed influenza virus vaccine, whole virus 11/21/97 Given Ambulat ory Pharmac y influenza virus vaccine, whole virus [id number] 16 [facility] complet ed influenza virus vaccine, whole virus 11/21/97 Given Ambulat ory Pharmac y tuberculin purified protein derivative 1997 96 complet ed tuberculi n purified protein derivativ e 07/10/97 Given Ambulat ory Pharmac y tuberculin purified protein derivative 1997 96 complet ed Patient Tolerance : Negative Ambulat ory Pharmac y hepatitis A adult vaccine 1997 52 complet ed hepatitis A adult vaccine 04/21/97 Given Ambulat ory Pharmac y yellow fever vaccine 1997 37 complet ed yellow fever vaccine 04/21/97 Given Ambulat ory Pharmac y typhoid vaccine, live, oral 1997 25 complet ed typhoid vaccine, live, oral 04/21/97 Given Ambulat ory Pharmac y yellow fever vaccine 1997 37 complet ed yellow fever vaccine 04/21/97 Given Ambulat ory Pharmac y typhoid vaccine, live, oral 1997 25 complet ed typhoid vaccine, live, oral 04/21/97 Given Ambulat ory Pharmac y hepatitis A adult vaccine 1997 52 complet ed hepatitis A adult vaccine 04/21/97 Given Ambulat ory Pharmac y influenza virus vaccine, whole virus [id number] 16 [employer] complet ed influenza virus vaccine, whole virus 12/20/96 Given Ambulat ory Pharmac y influenza virus vaccine, whole virus 1996 16 complet ed influenza virus vaccine, whole virus 11/30/96 Given Ambulat ory Pharmac y influenza virus vaccine, whole virus 1996 16 complet ed influenza virus vaccine, whole virus 11/30/96 Given Ambulat ory Pharmac y influenza virus vaccine, whole virus [id number] 16 [employer] complet ed influenza virus vaccine, whole virus 11/19/96 Given Ambulat ory Pharmac y influenza virus vaccine, whole virus [id number] 16 [employer] complet ed influenza virus vaccine, whole virus 11/19/96 Given Ambulat ory Pharmac y poliovirus vaccine, live, oral 1996 02 complet ed polioviru s vaccine, live, oral 07/09/96 Given Ambulat ory Pharmac y poliovirus vaccine, live, oral 1996 02 complet ed polioviru s vaccine, live, oral 07/09/96 Given Ambulat ory Pharmac y tuberculin purified protein derivative 1996 . [facility] tuberculi n purified protein derivativ e 07/02/96 Given Ambulat ory Pharmac y meningococcal polysaccharid e (MPSV4) 1996 32 complet ed meningoco ccal polysacch aride (MPSV4) 07/02/96 Given Ambulat ory Pharmac y tetanus-dipht h toxoids (Td) adult/adol 1996 09 complet ed tetanus-d iphth toxoids (Td) adult/ado l 07/02/96 Given Ambulat ory Pharmac y tuberculin purified protein derivative 1996 . 96 [facility] complet ed Patient Tolerance : Negative Ambulat ory Pharmac y meningococcal polysaccharid e (MPSV4) 1996 32 complet ed meningoco ccal polysacch aride (MPSV4) 07/02/96 Given Ambulat ory Pharmac y tetanus-dipht h toxoids (Td) adult/adol 1996 09 complet ed tetanus-d iphth toxoids (Td) adult/ado l 07/02/96 Given Ambulat ory Pharmac y Procedures Combined list of: 1) Procedures from Department of Veterans Affairs facilities going back up to thelast 18 months, not all [place] non-surgical procedures are included; 2) All procedures from the Department of Defense facilities. Procedure Procedure Type Code Date Perfomer Comments Sourc e No data available for this section Ambulatory P harmacy Assessment and Plan Combined list of future care activities from Department of Defense and Veterans Affairs facilities (e.g., assessment and plan notes, appointments, orders, and referrals). Additional future care activities may be listed in the Plan of Care section. Result Assessment and Plan Date Source Assessment and Plan No data available for this section 06/03/2024 Ambulatory Pharmacy Functional Status Combined list of recent functional and cognitive assessments recorded at Department of Defense and [facility] Affairs ([place] Functional [place] Measurement (FIM) Scale: 1 = Total Assistance (Subject = 0% +), 2 = Maximal Assistance (Subject = 25% +), 3 = Moderate Assistance (Subject = 50% +), 4 = Minimal Assistance (Subject = 75% +), 5 = Supervision, 6 = Modified [place] (Device), 7 = Complete [place] (Timely, Safely). Assessment Date/Time Source Assessment Type Assessment Skill Assessment Score Assessment Details No data available for this section
--- OUTSIDE RECORDS SUMMARY | 2024-06-03 00:25 | XMS_ITS | Clinical Summary ---
Author Organization [facility] Address [address] [place] [id number] Care Team Providers Care Office Services Specialist Name Role Phone Behzad De Paz DO Primary Care Provider Unavail able Allergies Active Allergy Reactions Criticality Noted Date Comments Bupropion Unknown 06/04/2016 Medications atorvastatin 20 MG tablet 05/04/2018 Active lisinopril 20 MG tablet 05/04/2018 Active CPAP DME DEVICEIndicatio ns:Obstructive sleep apnea of adult cpap at 10cm, use while sleeping 1 Device 1 05/05/2018 Active Active Problems Problem Noted Date Diagnosed Date CPAP (continuous positive airway pressure) depen dence 06/11/2017 Hypertension 06/04/2016 Obesity 06/04/2016 Obstructive sleep apnea of adult 06/04/2016 Social History Tobacco Use Types Packs/Day Years Used Date Smoking Tobacco: Never Smokeless Tobacco: Never Sex and Gender Information Value Date Recorded Sex Assigned at Not on file Legal Sex Male 8:23 PM CDT Gender Identity Not on file Sexual Orientation Not on file Last Filed Vital Signs Vital Sign Reading Time Taken Comments Blood Pressure 128/78 05/05/2018 10:52 AM CDT Pulse 66 05/05/2018 10:52 AM CDT Temperature 36.9 C (98.4 F) 05/05/2018 10:52 AM CDT Respiratory Rate 16 05/05/2018 10:52 AM CDT Oxygen Saturation 96% 05/05/2018 10:52 AM CDT Inhaled Oxygen Concentration - - Weight 136.5 kg (301 lb) 05/05/2018 10:52 AM CDT Height 177.8 cm (5' 10 ) 05/05/2018 10:52 AM CDT Body Mass Index 43.19 05/05/2018 10:52 AM CDT Plan of Treatment Health Maintenance Due Date Last Done Comments Colorectal Cancer Screening Colonoscopy (10 Years) 1975 Annual Physical 1978 Hepatitis C 1993 DTaP, Tdap and Td Vaccines ( 1 - Tdap) 1994 Hepatitis B Vaccines (1 of 3 - 19+ 3-dose series) 1994 COVID-19 Vaccine (1 - 2023-2 5 season) 2023 Meningococcal B Vaccine Aged Out No l onger eligible based on patient's age to complete this topic Meningococcal Vaccine Aged Out No marisel jimbo eligible based on patient's age to complete this topic Pneumococcal Vaccine: Pediat rics (0 to 5 Years) and At-Risk Patients (6 to 49 Years) Aged Out No longer eligible b ased on patient's age to complete this topic RSV Immunizations Under 20 Months Aged Out No longer eligible based on patient's age to complete this topic Insurance Care Teams Office Services Specialist Relationship Specialty Start Date End Date Bhezad De Paz DO PCP - General FAMILY PRACTICE 05/05/18
[2024-06-03 07:12] VITALS: BP 140/80; RESP 18; TEMP 36.6; O2SAT 96
--- NOTE | 2024-06-03 07:15 | P.PNAN_ITS ---
Anes - Initial Pre Proc Eval Procedure: Operation Date: 06/03/24 08:30 Proposed Procedures p Screening Colonoscopy - Trevor Campos MD Date/Time: 06/03/24 07:15 Surgeon: Trevor Campos MD Pre Op Diagnosis: screening colon Patient Data Age: 49 Gender: M Height: 1.78 m Weight: 135.9 kg Last Vital Signs Temp 36.6 C 06/03/24 07:12 Resp 18 06/03/24 07:12 BP 140/80 06/03/24 07:12 Pulse Ox 96 06/03/24 07:12 O2 Del Method Room Air 06/03/24 07:12 Allergies Allergy/AdvReac Type Severity Reaction Status Date / Time bupropion AdvReac Severe Swelling/It Verified 06/03/24 07:11 lucía Home Medications ?Medication ?Instructions ?Recorded ?Confirmed ?Type atorvastatin 20 mg tablet 20 mg PO EVERY OTHER DAY #90 tabs 02/04/24 05/25/24 Rx lisinopril 20 See Rx Instructions .Route 05/03/24 05/25/24 Rx mg-hydrochlorothiazide 25 mg tablet .COMPLEX #90 tabs Patient hx anesthesia problems: none Family hx anesthesia problems: none Results Review: All pre-operative results and documents have been reviewed as part of the pre- operative evaluation. [facility] Past Medical History Medical History KUSUM on CPAP Neck mass Elevated liver enzymes Kidney stones HLD (hyperlipidemia) H/O: HTN (hypertension) Surgical History Surgical History H/O lithotripsy History of wisdom tooth extraction Family History Family History Father Depression Other Colon cancer History of eye cancer Social History Social History Social History: Smoking status: Never smoker Second hand tobacco smoke exposure: No Alcohol intake: never Substance use: never Substance use type: does not use Lack of Transportation: No Lack of Food: Never True Current Housing: I Have Housing Concerned About Future Housing: No Difficulty Paying Gas/Electric Bills: No Difficulty Paying for Meds: No Currently Unemployed: No Education: Decline to Answer Difficulty w/ Childcare or Family Care: No Living arrangements: with family Occupation/Education: occupation Gender identity (if verbalized by the patient): Male Sexual Orientation (if Verbalized by the Patient): Straight or Heterosexual Spiritual care concerns: No Anes - Eval Final PreProcedure Day of Procedure 06/03/24 07:15 Patient weight: morbidly obese Heart: regular rate and rhythm Lungs: clear to auscultation Airway: Mallampati scale class II Neurological: alert and oriented Last oral intake: >/= 8 hours ASA classification: III Emergent: no Anesthetic plan: proceed Anesthesia type and monitoring: general GIVS and standard monitoring Results Review: All pre-operative results and documents have been reviewed as part of the pre- operative evaluation. Informed Consent: The patient's anesthetic plan and its attendant risks and benefits were discussed with the patient/family/POA. Questions were solicited and answers provided to the satisfaction of the patient/family/POA.
[2024-06-03] MEDS: LACTATED RINGERS 1,000 ML 150 ML IV CONT (07:24)
--- NOTE | 2024-06-03 07:49 | PM.IMHP ---
H&P: HPI History of Present Illness Date/Time: 06/03/24 07:49 Chief Complaint: Family history of colon cancer Narrative: This patient has family history of colorectal cancer. his father had colorectal cancer at age 60. His last colonoscopy was 10 years ago. Review of Systems Review of Systems: All systems reviewed & are unremarkable except as noted in HPI and below PMFSH Past Medical History Medical History KUSUM on CPAP Neck mass Elevated liver enzymes Kidney stones HLD (hyperlipidemia) H/O: HTN (hypertension) Surgical History Surgical History H/O lithotripsy History of wisdom tooth extraction Family History Family History Father Depression Other Colon cancer History of eye cancer Social History Social History Social History: Smoking status: Never smoker Second hand tobacco smoke exposure: No Alcohol intake: never Substance use: never Substance use type: does not use Lack of Transportation: No Lack of Food: Never True Current Housing: I Have Housing Concerned About Future Housing: No Difficulty Paying Gas/Electric Bills: No Difficulty Paying for Meds: No Currently Unemployed: No Education: Decline to Answer Difficulty w/ Childcare or Family Care: No Living arrangements: with family Occupation/Education: occupation Gender identity (if verbalized by the patient): Male Sexual Orientation (if Verbalized by the Patient): Straight or Heterosexual Spiritual care concerns: No Meds Home Medications and Allergies Home Medications ?Medication ?Instructions ?Recorded ?Confirmed ?Type atorvastatin 20 mg tablet 20 mg PO EVERY OTHER DAY #90 tabs 02/04/24 06/03/24 Rx lisinopril 20 See Rx Instructions .Route 05/03/24 06/03/24 Rx mg-hydrochlorothiazide 25 mg tablet .COMPLEX #90 tabs Allergies Allergy/AdvReac Type Severity Reaction Status Date / Time bupropion AdvReac Severe Swelling/It Verified 06/03/24 07:11 lucía Vital Signs Vital Signs - 24 hr 06/03/24 07:12 Temperature 97.9 F Respiratory Rate 18 Blood Pressure 140/80 Pulse Oximetry 96 Oxygen Delivery Room Air Exam Const: General: cooperative and healthy appearing Resp: Effort & Inspection: normal respiratory effort and able to speak in complete sentences Auscultation: clear to auscultation bilaterally Cardio: Rate: regular rate Rhythm: regular rhythm GI: Inspection: normal to inspection GI Palp: No No hepatosplenomegaly present Auscultation: normal bowel sounds Rectal Exam: deferred Skin: General skin exam: normal color Psych: Appearance: grossly normal Mental Status: mental status grossly normal Assessment and Plan Assessment and plan (1) Family history of colon cancer: Code(s): Z80.0 - Family history of malignant neoplasm of digestive organs Status: Acute Assessment and Plan: The patient is deemed a good candidate for the procedure. Consent signed. Will proceed.
[2024-06-03] MEDS: SIMETHICONE ORAL SUSPENSION 20 MG/0.3 ML 30 ML BOTTLE 0.6 ML IRRIGATION (08:04)
[2024-06-03 08:15] VITALS: BP 121/74; PULSE 87; RESP 20; O2SAT 98
[2024-06-03 08:25] VITALS: BP 125/69; PULSE 78; RESP 14; O2SAT 98
[2024-06-03 08:35] VITALS: BP 112/90; PULSE 84; RESP 20; O2SAT 99
== END 2024-06-03 08:43 | disposition home or self-care (01) ==
PROVIDERS: PCP Family Medicine; Referring Provider Student in an Organized Health Care Education/Training Program; Visit Provider Internal Medicine Gastroenterology
PROC: 0DJD8ZZ Inspection of Lower Intestinal Tract, Via Natural or Artificial Opening Endoscopic (ICD-10-PCS; CPT 45378; principal; 2024-06-03 08:30)
DX: Z12.11 Encounter for screening for malignant neoplasm of colon (principal); D12.2 Benign neoplasm of ascending colon; K64.8 Other hemorrhoids; E78.5 Hyperlipidemia, unspecified; I10 Essential (primary) hypertension; G47.33 Obstructive sleep apnea (adult) (pediatric); E66.01 Morbid (severe) obesity due to excess calories; Z68.41 Body mass index [BMI] 40.0-44.9, adult; Z99.89 Dependence on other enabling machines and devices; Z98.890 Other specified postprocedural states; Z87.442 Personal history of urinary calculi; Z80.0 Family history of malignant neoplasm of digestive organs
CPT/HCPCS: 45385; 88305; J2704; J7120

== ENCOUNTER 2024-11-15 07:36 | Outpatient (CLI) | payer OTHER, SELFPAY ==
--- OUTSIDE RECORDS SUMMARY | 2024-11-15 07:40 | XMS_ITS | Clinical Summary ---
Author Organization [facility] Address [address] [place] [id number] Care Team Providers Care Pepper Picker Name Role Phone Behzad De Paz DO [...] 10:52 AM CDT Height 177.8 cm (5' 10) 05/05/2018 10:52 AM CDT Body Mass Index 43.19 05/05/2018 10:52 AM CDT Plan of Treatment Health Maintenance Due Date Last Done Comments Colorectal Cancer Screening Colonoscopy (10 Years) 1975 Annual Physical 1978 Hepatitis C 1993 DTaP, Tdap and Td Vaccines ( 1 - Tdap) 1994 Hepatitis B Vaccines (1 of 3 - 19+ 3-dose series) 1994 COVID-19 Vaccine (1 - 2023-2 5 season) 2024 Meningococcal B Vaccine Aged Out No l [...] to complete this topic Insurance Care Teams Pepper Picker Relationship Specialty Start Date End Date Behzad De Paz DO PCP - General FAMILY PRACTICE 05/05/18
[2024-11-15 08:45] LABS: Hematocrit 50.5 % (42.0-52.0); Hemoglobin 16.6 g/dL (14.0-18.0); Immature Granulocyte Percent A 0.7 % (0-0.5); Lymphocytes Absolute Auto 2.41 K/mm3 (0.9-3.2); Mean Corpuscular HGB Conc 32.9 g/dl (32-36); Mean Corpuscular Hemoglobin 29.3 pg (26-34); Mean Corpuscular Volume 89.1 fl (80-100); Nucleated Red Blood Cells Absolute Auto 0.000 K/mm3 (0.0-0.012); Nucleated Red Blood Cells Perc 0.0 % (0.0-0.2); Platelet Count Result 280 k/mm3 (150-375); Red Blood Count 5.67 M/mm3 (4.6-6.20); White Blood Count 7.3 K/mm3 (4.5-10.0)
[2024-11-15 09:05] LABS: Hemoglobin A1C 5.7 % (<5.7)
[2024-11-15 09:09] LABS: Alanine Aminotransferase 82 U/L (6-50); Albumin Level 4.6 g/dL (3.5-5.1); Alkaline Phosphatase 100 U/L (38-126); Anion Gap 9 mmol/L (4-12); Aspartate Amino Transferase 53 U/L (17-59); Bilirubin,Total 0.8 mg/dL (0.2-1.3); Blood Urea Nitrogen 16 mg/dL (9-20); Calcium 10.6 mg/dL (8.4-10.2); Carbon Dioxide 26 mmol/L (22-30); Chloride 104 mmol/L (98-107); Cholesterol 206 mg/dL (0-200); Estimated Glomerular Filt Rate > 60; Glucose 102 mg/dL (65-110); HDL Direct 31 mg/dL; Potassium 4.2 mmol/L (3.4-5.0); Sodium 139 mmol/L (137-145); Total Protein 8.3 g/dL (6.3-8.2); Triglycerides 181 mg/dL (<150)
== END 2024-11-15 07:37 | disposition home or self-care (01) ==
LOC: ANHLAB 07:37
PROVIDERS: PCP Family Medicine; Visit Provider Student in an Organized Health Care Education/Training Program
DX: E66.01 Morbid (severe) obesity due to excess calories (principal); I10 Essential (primary) hypertension; E78.5 Hyperlipidemia, unspecified
CPT/HCPCS: 36415; 80053; 80061; 83036; 85025